=== PATIENT | female | born 2000 | race Asian ===

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

== ENCOUNTER 2022-07-09 12:53 | Outpatient (CLI) | payer OTHER ==
[2022-07-09 22:20] VITALS: BP 114/74
--- NOTE | 2022-07-09 22:20 | SLEEP CARE CONSULTATION ---
Information from patient questionnaire entered by Adam Candelaria. I have reviewed and concur with the information entered by Adam Candelaria. This document represents the service I personally performed and the decisions made by me, Indra Seals MD, [facility]. History of Present Illness Service Date and Time: 07/09/2022 1253 Reason for Visit: New patient Chief Complaint: reports: Insomnia, Snoring, Observed pauses in breathing, Fatigue Date of Onset: 7-8YRS Usual bedtime: 4-5PM Time it takes to fall asleep: 60MIN Snores at night: Yes Observed to quit breathing while asleep: Yes Sleeps alone due to snoring: No Number of times waking at night: 1-2 Reasons for waking at night: reports: Gasping for air, Bathroom, Other (UNKNOWN) Toss, Turn, or Twitch while sleeping: Yes Recalls having dreams: Yes Usually gets out of bed at: 10AM-2PM Feels refreshed in the morning: No Morning headache: Yes Sleepy or fatigued during the day: Yes Ever fallen asleep while driving: Yes Takes day naps: No Prior sleep studies: No Additional HPI information: I have the pleasure of seeing Ms. Foster today regarding the possibility of her having obstructive sleep apnea. As you know, she is a 22-year-old lady who complains of frequent sleep paralysis, sometimes more often than once a day. She describes it as numbness, sometimes painful around her body and unable to move. Sometimes she dreams that she walks away but she actually still lying in bed. 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 It takes her approximately an hour to fall asleep. She has been told that she snores loudly and irregularly at night. She has also been observed to stop breathing in her sleep. She can recall waking up on the average of 1 - 2 times during the night. Most of the time she wakes up because of having to use the bathroom. She has awakened occasionally because of her own snoring, choking, and having to gasp for air. There is a lot of tossing and turning in her sleep. She has somniloquy (sleep talking) but not somnambulism (sleep walking). Generally, she can recall having dreams. In the morning she usually gets up out of the bed around 2 p.m. not feeling refreshed nor rested. She usually does have a morning headache. During the day she complains of feeling sleepy and fatigued. Her score on [place] Sleepiness Scale is 10 out of 24. She never has fallen asleep while driving nor has had any accident due to sleepiness. She usually does not take naps during the day. Upon falling asleep during the day she reports having vivid dreams. She describes cataplexy where she feels weak at the knees when startled. She reports having impaired concentration during the day. - Parasomnia Symptoms Ever been unable to move upon waking from sleep: Yes Walks in sleep: No Talks in sleep: Yes Ever acted out dreams in sleep: Yes Ever felt weak in the knees when startled or emotional: Yes Bothered by creepy, crawly, restless sensations in legs: No Problems with memory or concentration: Yes Subjective Initial [place] Sleepiness Scale score: 10 (07/09/22) Past Medical History Past Medical History: reports: Anxiety Social History The patient's occupation is a [employer]. Patient is Single and lives in [place]. Have you smoked in the past 12 months: No Alcohol use: No Caffeine use: No Family History Family history of sleep disordered breathing: Yes Family Hx Sleep Apnea: Mother: Snoring, Father: Snoring, Sleep apnea - Treated Allergies and Home Medications Known drug allergies: No Drug allergies reviewed: Yes Home medication list reviewed: Yes Allergy and home medication list: Allergies No Known Drug Allergies Allergy (Verified 07/06/22 09:45) Review of Systems Weight gain over past 5 years: 10 Cardiovascular: denies: high blood pressure, palpitations, chest pain, irregular heart rate or pulse, leg or foot swelling, have to sleep sitting up, other Respiratory: denies: shortness of breath, wheeze, sputum production, chronic cough, other Gastrointestinal: reports: abdominal pain Neurological: denies: headaches, seizure, head trauma, disorientation, speech dysfunction, gait or balance problems, fainting or unconsciousness, other Psychiatric: reports: anxiety Ear/Nose/Throat: reports: wisdom teeth removed Endocrine: reports: too hot or cold, unexplained weakness Musculoskeletal: reports: joint pain, muscle pain or cramping Immunologic: denies: sneezing, rash, itching, allergies to food or environment, other Physical Exam Vital signs obtained and entered by: ADAM Kirby MA Blood Pressure: 114/74 (LEFT ARM) Cuff size: regular Heart Rate: 80 O2 Saturation: 99 Height: 5 ft Weight: 116 lb 9.6 oz Body Mass Index: 22.7 BMI Classification: Normal Neck circumference: 12.75 Mood/affect: normal HEENT: No craniofacial malformation Nostrils: patent to airflow Turbinates: normal Septum: midline Mouth and throat: narrow oropharynx Soft palate: long Uvula visualization: 50% Mallampati Class II Tongue: normal in size Tonsils: small Chin and jaw: Micrognathia Neck: normal w/o lymphadenopathy or thyromegaly Heart: regular rate and rhythm Lungs: clear bilaterally Abdomen: soft Extremities: no edema or clubbing Neurologic: intact Impression and Plan IMPRESSION: 1. Sleep paralysis, possibly a symptom of narcolepsy given hypnagogic hallucination and cataplexy. She is mildly sleepy. I recommend proceeding to polysomnography + multiple sleep latency test (MSLT). The tests might not be accurate because she works shift leader. Ideally, she should be off work for at least 2 weeks, or at least not working nights. 2. Suspected sleep apnea. The patient snores, wakes up gasping, and has morning headache. She has micrognathia. Her father has obstructive sleep apnea-hypopnea. The in-laboratory polysomnography may show significant sleep- disordered breathing which make the patient not a candidate for the MSLT. Plan: 1. Schedule polysomnography + multiple sleep latency test (MSLT) 2. Avoid long distance driving or when feeling sleepy. 3. Avoid alcohol, sedative and muscle relaxant around bedtime. 4. Recommend day shift for at least 2 weeks prior to the sleep study. Follow up with Sleep Care in: 1-2 months Visit Type: In Office Time Spent with Patient (minutes): 15 Provider Statement: I spent 100% of the Face to Face Visit with the patient with greater than 50% spent counseling the patient and coordination of care.
== END 2022-07-09 12:54 | disposition home or self-care (01) ==
LOC: SC 12:53
PROVIDERS: ATTEND Internal Medicine Pulmonary Disease
DX: G47.53 Recurrent isolated sleep paralysis (principal); R06.83 Snoring; R51.9 Headache, unspecified; M26.09 Other specified anomalies of jaw size
CPT/HCPCS: 99202; 99212

== ENCOUNTER 2022-11-05 10:53 | Outpatient (CLI) | payer OTHER ==
--- NOTE | 2022-11-06 08:17 | SLEEP CARE CONSULTATION ---
Information from patient questionnaire entered by Adam Candelaria. I have reviewed and concur with the information entered by Adam Candelaria. This document represents the service I personally performed and the decisions made by me, Indra Seals MD, [facility]. History of Present Illness Service Date and Time: 11/05/2022 1053 Initial [place] Sleepiness Scale score: 10 (07/09/22) Current [place] Sleepiness Scale score: 7 (11/05/22) Additional HPI information: Ms. Foster returned for follow up of the sleep study she had on 10/01/22. The polysomnography showed that the patient had reduced sleep efficiency. The sleep architecture was abnormal for sleep fragmentation and reduced amount of time spent in REM sleep. Respiratory monitoring showed mild obstructive sleep apnea- hypopnea (AHI = 6.0) associated with frequent arousals, oxyhemoglobin desaturation and mild hypoxia (arjun oxygen saturation of 86%). The patient slept mostly supine (supine AHI = 5.9; non-supine = 7.20). Snore was infrequent and light in intensity. There was no significant periodic leg movement of sleep. Cardiac rhythm was normal sinus rhythm without significant arrhythmia. No abnormal behavior (parasomnia) observed during the night. The patient was informed of these findings. I explained to her the pathophysiology behind obstructive sleep apnea. We then spent quite a bit of time discussing different treatment options. For mild obstructive sleep apnea, surgery and oral appliance are alternatives to nasal CPAP therapy but in moderate or severe cases, nasal CPAP is the most effective and reliable treat ment. After some discussion, she opted to go with tonsillectomy. Sleep Study - Results Type of Sleep Study: Polysomnography (LAST SEEN 10/01/22) Prior sleep studies: No Allergies and Home Medications Drug allergies reviewed: Yes Home medication list reviewed: Yes Allergy and home medication list: Allergies No Known Drug Allergies Allergy (Verified 11/02/22 10:22) Review of Systems Review of systems same as previous: Yes Physical Exam Vital signs obtained and entered by: ADAM Kirby MA Blood Pressure: 120/70 (LEFT ARM) Cuff size: regular Heart Rate: 75 O2 Saturation: 100 Height: 5 ft Weight: 128 lb Body Mass Index: 25.0 BMI Classification: Overweight Impression and Plan IMPRESSION: 1. Obstructive Sleep Apnea-Hypopnea Syndrome, mild, associated with mild hypoxemia and sleep fragmentation. Possibly, this is the cause of the patients symptoms of unrefreshed sleep, and excessive daytime sleepiness. It may even explain the sleep paralysis. Because she does have enlarged tonsils, tonsillectomy can be the primary treatment. PLAN: 1. Primary care provider to refer the patient to an ENT surgeon for tonsillectomy. 2. Return for a follow up after the tonsillectomy. A follow up sleep study will be performed. Follow up with Sleep Care in: 6 months Follow up with: PCP Visit Type: In Office Time Spent with Patient (minutes): 15 Provider Statement: I spent 100% of the Face to Face Visit with the patient with greater than 50% spent counseling the patient and coordination of care.
[2022-11-06 08:22] VITALS: BP 120/70; O2SAT 100
== END 2022-11-05 10:54 | disposition home or self-care (01) ==
LOC: SC 10:53
PROVIDERS: ATTEND Internal Medicine Pulmonary Disease
DX: G47.33 Obstructive sleep apnea (adult) (pediatric) (principal); E66.3 Overweight; Z68.25 Body mass index [BMI] 25.0-25.9, adult
CPT/HCPCS: 99212

== ENCOUNTER 2023-05-06 15:03 | Outpatient (CLI) | payer OTHER ==
--- NOTE | 2023-05-06 15:33 | SLEEP CARE CONSULTATION ---
Information from patient questionnaire entered by Adam Candelaria. I have reviewed and concur with the information entered by Adam Candelaria. This document represents the service I personally performed and the decisions made by me, Indra Seals MD, [facility]. History of Present Illness Service Date and Time: 05/06/2023 1503 Reason for follow up: six month (F/U) Prior sleep studies: No Type of Sleep Study: Polysomnography (LAST SEEN 10/01/22) HPI additional information: Ms. Foster returned for follow up of mild obstructive sleep apnea-hypopnea. Apparently, she has not received any treatment yet. When I saw her 6 months ago, I thought tonsillectomy would be the best treatment option given her enlarged tonsils bilaterally. The cart note was sent to her primary care provider recommending an ENT referral. The patient tells me that she has turned 23 years old and is no longer see the provider. At present, she has no primary care provider. She would like to pursue the treatment for the sleep-related br eathing disorder. Sleep Study - Results Type of Sleep Study: Polysomnography (LAST SEEN 10/01/22) Prior sleep studies: No Subjective Initial [place] Sleepiness Scale score: 10 (07/09/22) Current [place] Sleepiness Scale score: 7 (05/06/23) Allergies and Home Medications Drug allergies reviewed: Yes Home medication list reviewed: Yes Allergy and home medication list: Allergies No Known Drug Allergies Allergy (Verified 11/05/22 10:57) Review of Systems Review of systems same as previous: Yes (NO CHANGE) Physical Exam Vital signs obtained and entered by: ADAM Kirby MA Blood Pressure: 121/71 (RIGHT ARM) Cuff size: regular Heart Rate: 70 O2 Saturation: 100 Height: 5 ft Weight: 134 lb 3.2 oz Body Mass Index: 26.2 BMI Classification: Overweight Impression and Plan IMPRESSION: 1. Obstructive Sleep Apnea-Hypopnea Syndrome, mild, associated with mild hypoxemia. The patient would like to proceed to tonsillectomy before trying a CPAP. This is reasonable in her case. I will do the referral to Dr. Zambrano who is an ENT surgeon in [place] where she works. PLAN: 1. ENT referral. 2. Return for a follow up sleep study about 2 months after the surgery. Follow up with: Other (ENT) Visit Type: In Office Time Spent with Patient (minutes): 15 Provider Statement: I spent 100% of the Face to Face Visit with the patient with greater than 50% spent counseling the patient and coordination of care.
[2023-05-06 15:35] VITALS: BP 121/71; O2SAT 100
== END 2023-05-06 15:04 | disposition home or self-care (01) ==
LOC: SC 15:03
PROVIDERS: ATTEND Internal Medicine Pulmonary Disease
DX: G47.33 Obstructive sleep apnea (adult) (pediatric) (principal)
CPT/HCPCS: 99212

== ENCOUNTER 2023-11-04 11:30 | Outpatient (CLI) | payer OTHER ==
--- NOTE | 2023-11-04 10:49 | SLEEP CARE CONSULTATION ---
Information from patient questionnaire entered by Adam Candelaria. I have reviewed and concur with the information entered by Adam Candelaria. This document represents the service I personally performed and the decisions made by me, Indra Seals MD, [facility]. History of Present Illness Service Date and Time: 11/04/2023 1100 Reason for follow up: other (6 MONTH F/U) Prior sleep studies: No Type of Sleep Study: Polysomnography (LAST SEEN 10/01/22) HPI additional information: Ms. Foster was called for follow up of mild obstructive sleep apnea-hypopnea. Apparently, she has not received any treatment yet. When I saw her 6 months ago, I thought tonsillectomy would be the best treatment option given her enlarged tonsils bilaterally. She has seen an ENT and is scheduled to have tonsillectomy next week. Sleep Study - Results Type of Sleep Study: Polysomnography (LAST SEEN 10/01/22) Prior sleep studies: No Subjective Initial [employer] [employer] Sleepiness Scale score: 10 (07/09/22) Allergies and Home Medications Drug allergies reviewed: Yes Home medication list reviewed: Yes Allergy and home medication list: Allergies No Known Drug Allergies Allergy (Verified 11/04/23 10:12) Review of Systems Review of systems same as previous: Yes (NO CHANGE) Physical Exam Vital signs obtained and entered by: ADAM Kirby MA Height: 4 ft 11 in (PER PT) Weight: 125 lb (PER PT) Body Mass Index: 25.2 BMI Classification: Overweight Impression and Plan IMPRESSION: 1. Obstructive Sleep Apnea-Hypopnea Syndrome, mild, associated with mild hypoxemia. The patient will procced to tonsillectomy before trying a CPAP. This is reasonable in her case. A follow up in-laboratory polysomnography will be performed 2 months after the surgery. PLAN: 1. Proceed with tonsillectomy. 2. Return for a follow up sleep study about 2 months after the surgery. Follow up with Sleep Care in: 3 months Visit Type: Telehealth Phone Video Type: Eliana Patient agrees and consents to this telehealth visit type: Yes Patient agrees to have their insurance billed: Yes Time Spent with Patient (minutes): 10 Provider Statement: I spent 100% of the Telehealth Phone Call with the patient with greater than 50% spent counseling the patient and coordination of care.
== END 2023-11-04 11:31 | disposition home or self-care (01) ==
LOC: SC 11:30
PROVIDERS: ATTEND Internal Medicine Pulmonary Disease
DX: G47.33 Obstructive sleep apnea (adult) (pediatric) (principal); R09.02 Hypoxemia
CPT/HCPCS: 99441